=== PATIENT | male | born 1955 | race Caucasian/White ===

== ENCOUNTER 2017-07-04 17:22 | Emergency (ER) | payer BC, OTHER ==
[2017-07-04 17:26] VITALS: TEMP 98.6; BMI 24.7
--- NOTE | 2017-07-04 19:15 | PDOC ---
History of Present Illness - General Chief Complaint: Pain Stated Complaint: ABD PAIN Time Seen by Provider: 07/04/17 19:12 History Source: Patient - History of Present Illness Initial Comments: 07/04/17 21:34 62 year old male with generalized abdominal pain ( which has now resolved) and NVD BIB for evaluation. patient reports one episode of vomiting this morning and 2 episodes of diarrhea. patient also reports foul smelling urine with b/l lower back pain. patient reports that pain is ongoing since he fell on ice 1 month ago. denies fever/ chills, chest pain, diaphoresis, headache, abdominal pain at this time. past medical history of hypertension Past History - Past Medical History Allergies/Adverse Reactions: Allergies Allergy/AdvReac Type Severity Reaction Status Date / Time No Known Allergies Allergy Verified 07/04/17 17:23 Home Medications: Ambulatory Orders NK [No Known Home Medication] 07/04/17 COPD: No Diabetes: Yes - Suicide/Smoking/Psychosocial Hx Smoking History: Never smoked Have you smoked in the past 12 months: No Information on smoking cessation initiated: No Hx Alcohol Use: No Drug/Substance Use Hx: No Substance Use Type: None Review of Systems - Review of Systems Able to Perform ROS?: Yes Is the patient limited Mohawk proficient: No Constitutional: No: Symptoms Reported, See HPI, Chills, Diaphoresis, Fever, Loss of Appetite, Malaise, Night Sweats, Weakness, Weight Stable, Unintentional Wgt. Loss, Unexplained wgt Loss, Other HEENTM: No: Symptoms Reported, See HPI, Eye Pain, Blurred Vision, Tearing, Recent change in vision, Double Vision, Cataracts, Ear Pain, Ocular Prothesis, Ear Discharge, Nose Pain, Nose Congestion, Tinnitus, Nose Bleeding, Hearing Loss , Throat Pain, Throat Swelling, Mouth Pain, Dental Problems, Difficulty Swallowing, Mouth Swelling, Other Respiratory: No: Symptoms reported, See HPI, Cough, Orthopnea, Shortness of Breath, SOB with Exertion, SOB at Rest, Stridor, Wheezing, Productive cough, Hemoptysis, Other ABD/GI: Yes: Diarrhea, Nausea, Vomiting, Abdominal cramping. No: Symptoms Reported, See HPI, Abdominal Distended, Abd. Pain w/ defecation, Blood Streaked Bowels, Constipated, Difficulty Swallowing, Poor Appetite, Poor Fluid Intake, Rectal Bleeding, Indigestion, Tarry Stools, Other Musculoskeletal: No: Symptoms Reported, See HPI, Back Pain, Gout, Joint Pain, Joint Swelling, Muscle Pain, Muscle Weakness, Neck Pain, Joint Stiffness, Other *Physical Exam - Vital Signs Last Vital Signs Temp Pulse Resp BP Pulse Ox 98.6 F 86 18 131/89 100 07/04/17 17:24 07/04/17 17:24 07/04/17 17:24 07/04/17 17:24 07/04/17 17:24 - Physical Exam General Appearance: Yes: Appropriately Dressed Respiratory/Chest: positive: Lungs Clear, Normal Breath Sounds. negative: Chest Tender Cardiovascular: positive: Regular Rhythm, Regular Rate Gastrointestinal/Abdominal: positive: Soft, Increased Bowel Sounds Musculoskeletal: positive: Normal Inspection, Other (lower back tenderness) Extremity: positive: Normal Capillary Refill, Normal Inspection Integumentary: positive: Normal Color, Dry, Warm Neurologic: positive: Fully Oriented, Alert, Normal Mood/Affect Heart Score/ECG Review - ECG Intrepretation Rhythm: Regular Rhythm Comment:: 07/04/17 21:37 NSR: 70 BPM ED Treatment Course - LABORATORY CBC & Chemistry Diagram: 07/04/17 19:54 07/04/17 19:54 *DC/Admit/Observation/Transfer Diagnosis at time of Disposition: Acute gastroenteritis - Discharge Dispostion Disposition: HOME - Referrals - Patient Instructions Printed Discharge Instructions: Viral Gastroenteritis Additional Instructions: drink plenty of fluids Start A BRAT (bananas, rice, apples toast ) diet. follow up with your doctor as soon as possible. - Post Discharge Activity Forms/Work/School Notes: Back to Work
[2017-07-04] MEDS ORDERED: SODIUM CHLORIDE 1,000 ML IV STA (19:44)
[2017-07-04] MEDS ORDERED: ONDANSETRON 4 MG/2 ML VIAL IVPUSH ONE (19:45)
[2017-07-04] MEDS ORDERED: ONDANSETRON 4 MG/2 ML VIAL ONE (20:01)
--- NOTE | 2017-07-04 20:01 | PDOC ---
*Physical Exam - Vital Signs Last Vital Signs Temp Pulse Resp BP Pulse Ox 98.6 F 86 18 131/89 100 07/04/17 17:24 07/04/17 17:24 07/04/17 17:24 07/04/17 17:24 07/04/17 17:24 ED Treatment Course - LABORATORY CBC & Chemistry Diagram: 07/04/17 19:54 07/04/17 19:54 Medical Decision Making - Medical Decision Making 07/04/17 20:01 agree with care from ABRAHAM Dhillon *DC/Admit/Observation/Transfer Diagnosis at time of Disposition: Acute gastroenteritis - Discharge Dispostion Disposition: HOME - Referrals - Patient Instructions Printed Discharge Instructions: Viral Gastroenteritis Additional Instructions: drink plenty of fluids Start A BRAT (bananas, rice, apples toast ) diet. follow up with your doctor as soon as possible. - Post Discharge Activity Forms/Work/School Notes: Back to Work
[2017-07-04 20:02] LABS: BASO % 0.3 % (0-2.0); EOS % 0.2 % (0-4.5); HEMATOCRIT 43.5 % (35.4-49); HEMOGLOBIN 14.6 GM/dL (11.7-16.9); LYMPH % 10.6 % (8-40); MCH 30.7 pg (25.7-33.7); MCHC 33.5 g/dl (32.0-35.9); MEAN CELL VOLUME 91.6 fl (80-96); MEAN PLT VOLUME 8.8 fl (7.5-11.1); MONO % 6.5 % (3.8-10.2); NEUT % 82.4 % (42.8-82.8); PLATELET COUNT 161 K/MM3 (134-434); RBC 4.75 M/mm3 (4.00-5.60); RDW 14.4 % (11.9-15.9); WHITE BLOOD COUNT 6.4 K/mm3 (4.0-10.0)
[2017-07-04 20:04] LABS: URINE APPEARANCE CLEAR; URINE BILIRUBIN NEGATIVE (NEGATIVE); URINE BLOOD 1+ (NEGATIVE); URINE COLOR YELLOW; URINE GLUCOSE (UA) NEGATIVE (NEGATIVE); URINE KETONE NEGATIVE (NEGATIVE); URINE LEUK ESTERASE NEGATIVE (NEGATIVE); URINE NITRITE NEGATIVE (NEGATIVE); URINE PROTEIN NEGATIVE (NEGATIVE); URINE UROBILINOGEN NEGATIVE mg/dL (0.2-1.0)
[2017-07-04 20:09] LABS: URINE MUCUS MODERATE
[2017-07-04 20:34] LABS: ALBUMIN 3.7 g/dl (3.4-5.0); ANION GAP 5 (8-16); BLOOD UREA NITROGEN 25 mg/dL (7-18); CALCIUM 7.8 mg/dL (8.5-10.1); CHLORIDE 107 mmol/L (98-107); CO2 28 mmol/L (21-32); GLUCOSE,RANDOM 104 mg/dL (74-106); LIPASE 85 U/L (73-393); POTASSIUM 3.9 mmol/L (3.5-5.1); SGOT/AST 18 U/L (15-37); SGPT/ALT 34 U/L (12-78); SODIUM 140 mmol/L (136-145)
[2017-07-04 20:36] LABS: ALK PHOS 86 U/L (45-117); TOT PROT 6.8 g/dl (6.4-8.2)
[2017-07-04 21:50] VITALS: BP 140/82; PULSE 76
--- NOTE | 2017-07-05 11:41 | EKG ---
Test Reason : Blood Pressure : / mmHG Vent. Rate : 070 BPM Atrial Rate : 070 BPM P-R Int : 150 ms QRS Dur : 094 ms QT Int : 394 ms P-R-T Axes : 057 030 040 degrees QTc Int : 425 ms POOR DATA QUALITY, INTERPRETATION MAY BE ADVERSELY AFFECTED NORMAL SINUS RHYTHM NORMAL ECG NO PREVIOUS ECGS AVAILABLE Confirmed by BOBBY RODRIGUEZ MD ([id number]) on 07/05/2017 11:41:14 AM Referred By: Confirmed By:BOBBY RODRIGUEZ MD
== END 2017-07-04 21:50 | disposition home or self-care (01) ==
LOC: JER 17:22
PROC: 3E033GC Introduction of Other Therapeutic Substance into Peripheral Vein, Percutaneous Approach (ICD-10-PCS; principal; 2017-07-04)
PROC: 3E0337Z Introduction of Electrolytic and Water Balance Substance into Peripheral Vein, Percutaneous Approach (ICD-10-PCS; 2017-07-04)
DX: K52.9 Noninfective gastroenteritis and colitis, unspecified (principal)
CPT/HCPCS: 36415; 80053; 81003; 81015; 82550; 83690; 84484; 85025; 87086; 87491; 87591; 93005; 93010; 96361; 96374; 99283-25

== ENCOUNTER 2017-08-18 17:12 | Emergency (ER) | payer OTHER ==
--- NOTE | 2017-08-18 17:20 | PDOC ---
Rapid Medical Evaluation Chief Complaint: Pain, Acute Time Seen by Provider: 08/18/17 17:20 Medical Evaluation: Allergies Allergy/AdvReac Type Severity Reaction Status Date / Time No Known Allergies Allergy Verified 07/04/17 17:23 08/18/17 17:20 The patient presents with a chief complaint of: fever, dysuria, back pain I have performed a brief in-person evaluation of this patient. Pertinent physical exam findings: vss, appears healthy I have ordered the following: labs The patient will proceed to the ED for further evaluation. 08/18/17 17:22
[2017-08-18 17:23] VITALS: BP 140/70; PULSE 85; TEMP 99.7; BMI 56.9
[2017-08-18] MEDS ORDERED: SODIUM CHLORIDE 1,000 ML IV SCH (18:00)
[2017-08-18] MEDS ORDERED: ACETAMINOPHEN 325 MG TABLET (FP) PO ONE (18:20)
--- NOTE | 2017-08-18 18:22 | PDOC ---
History of Present Illness - General History Source: Patient, Old Records Exam Limitations: No Limitations - History of Present Illness Initial Comments: 08/18/17 18:27 The patient is a 62 year old male with past medical history hypertension, hyperlipidemia, and diabetes who presents to the emergency department with right flank pain for 3 days. He reports associated dysuria and fever. The patient took 2 advil last night with mild alleviation of pain. He denies nausea or vomiting. <Jimi Groves - Last Filed: 08/18/17 18:26> - General History Source: Patient Exam Limitations: No Limitations <Harlan Pearson - Last Filed: 08/18/17 21:27> - General Chief Complaint: Pain, Acute Stated Complaint: KIDNEY STONE, PAIN Time Seen by Provider: 08/18/17 17:20 Past History <Jimi Groves - Last Filed: 08/18/17 18:26> - Past Medical History COPD: No Diabetes: Yes HTN: Yes - Suicide/Smoking/Psychosocial Hx Smoking History: Never smoked Have you smoked in the past 12 months: No Information on smoking cessation initiated: No Hx Alcohol Use: No Drug/Substance Use Hx: No Substance Use Type: None <Harlan Pearson - Last Filed: 08/18/17 21:27> - Past Medical History Allergies/Adverse Reactions: Allergies Allergy/AdvReac Type Severity Reaction Status Date / Time No Known Allergies Allergy Verified 08/18/17 17:23 Home Medications: Ambulatory Orders Acetaminophen [Tylenol] 650 mg PO Q4H PRN #20 tablet 08/18/17 Tamsulosin HCl [Flomax] 0.4 mg PO DAILY #14 cap.er.24h 08/18/17 levoFLOXacin [Levaquin] 750 mg PO ONCE #4 tab 08/18/17 Review of Systems - Review of Systems Able to Perform ROS?: Yes Comments:: 08/18/17 18:27 GENERAL/CONSTITUTIONAL: No fever or chills. No weakness. HEAD, EYES, EARS, NOSE AND THROAT: No change in vision. No ear pain or discharge. No sore throat. CARDIOVASCULAR: No chest pain or shortness of breath. RESPIRATORY: No cough, wheezing, or hemoptysis. GASTROINTESTINAL: No nausea, vomiting, diarrhea or constipation. GENITOURINARY: (+) Dysuria. No frequency. MUSCULOSKELETAL: (+) Right flank pain. No neck pain. SKIN: No rash NEUROLOGIC: No headache, vertigo, loss of consciousness, or change in strength/ sensation. ENDOCRINE: No increased thirst. No abnormal weight change. HEMATOLOGIC/LYMPHATIC: No anemia, easy bleeding, or history of blood clots. ALLERGIC/IMMUNOLOGIC: No hives or skin allergy. <Jimi Groves - Last Filed: 08/18/17 18:26> *Physical Exam - Vital Signs Last Vital Signs Temp Pulse Resp BP Pulse Ox 99.7 F H 85 18 140/70 97 08/18/17 17:20 08/18/17 17:20 08/18/17 17:20 08/18/17 17:20 08/18/17 17:20 - Physical Exam Comments: 08/18/17 18:27 GENERAL: Awake, alert, and fully oriented, in no acute distress HEAD: No signs of trauma EYES: PERRLA, EOMI, sclera anicteric, conjunctiva clear ENT: Auricles normal inspection, hearing grossly normal, nares patent, oropharynx clear without exudates. Moist mucosa NECK: Normal ROM, supple, no lymphadenopathy, JVD, or masses LUNGS: Breath sounds equal, clear to auscultation bilaterally. No wheezes, and no crackles HEART: Regular rate and rhythm, normal S1 and S2, no murmurs, rubs or gallops ABDOMEN: (+) Mild tenderness on palpation, soft, normoactive bowel sounds. No guarding, no rebound. No masses EXTREMITIES: Normal range of motion, no edema. No clubbing or cyanosis. No cords, erythema, or tenderness NEUROLOGICAL: Cranial nerves II through XII grossly intact. Normal speech, normal gait SKIN: Warm, Dry, normal turgor, no rashes or lesions noted. <Jimi Groves - Last Filed: 08/18/17 18:26> - Vital Signs Last Vital Signs Temp Pulse Resp BP Pulse Ox 99.7 F H 85 18 140/70 97 08/18/17 17:20 08/18/17 17:20 08/18/17 17:20 08/18/17 17:20 08/18/17 17:20 <Harlan Pearson - Last Filed: 08/18/17 21:27> ED Treatment Course - LABORATORY CBC & Chemistry Diagram: 08/18/17 18:20 08/18/17 18:20 <Jimi Groves - Last Filed: 08/18/17 18:26> - LABORATORY CBC & Chemistry Diagram: 08/18/17 18:20 08/18/17 18:20 - RADIOLOGY Radiology Studies Ordered: Category Date Time Status SPIRAL- RENAL-STONE CT [CT] Stat CT Scan 08/18/17 17:58 Ordered <Harlan Pearson - Last Filed: 08/18/17 21:27> Medical Decision Making - Medical Decision Making 08/18/17 18:21 A portion of this note was documented by scribe services under my direction. I have reviewed the details of the note, within reason, and agree with the documentation with the following case summary and management plan written by me. Patient treated in the ED. Nursing notes are reviewed and incorporated into the medical decision-making. Vital signs reviewed. Peripheral IV access obtained by the nurse, laboratory studies are drawn and sent, reviewed and interpreted by myself. Vital Signs Temp Pulse Resp BP Pulse Ox 99.7 F H 85 18 140/70 97 08/18/17 17:20 08/18/17 17:20 08/18/17 17:20 08/18/17 17:20 08/18/17 17:20 62-year-old male with past medical history of hypertension, diabetes, hyperlipidemia presents with 3 days of right flank pain and dysuria. Endorses tactile fevers. Denies nausea or vomiting. We'll need to rule out pyelonephritis, cystitis, renal colic. Less likely is appendicitis. Obtain blood work and a CAT scan abdomen pelvis and urinalysis and reassess. 08/18/17 21:20 CAT scan demonstrates no hydroureter nephrosis. There is an equivocal subtle 3 x 2 mm mildly radiopaque right ureteral junction adjacent to the ureterovesical junction without associated obstruction. CBC, BMP 08/18/17 18:20 08/18/17 18:20 CMP Sodium 139 mmol/L (136-145) 08/18/17 18:20 Potassium 4.0 mmol/L (3.5-5.1) 08/18/17 18:20 Chloride 105 mmol/L (98-107) 08/18/17 18:20 Carbon Dioxide 28 mmol/L (21-32) 08/18/17 18:20 Anion Gap 6 (8-16) L 08/18/17 18:20 BUN 16 mg/dL (7-18) D 08/18/17 18:20 Creatinine 0.9 mg/dL (0.7-1.3) 08/18/17 18:20 Creat Clearance w eGFR > 60 (>60) 08/18/17 18:20 Random Glucose 164 mg/dL (74-106) H D 08/18/17 18:20 Calcium 8.3 mg/dL (8.5-10.1) L 08/18/17 18:20 Total Bilirubin 0.9 mg/dL (0.2-1.0) 08/18/17 18:20 AST 16 U/L (15-37) 08/18/17 18:20 ALT 28 U/L (12-78) 08/18/17 18:20 Alkaline Phosphatase 98 U/L (45-117) 08/18/17 18:20 Creatine Kinase 45 IU/L (39-308) 08/18/17 18:20 Troponin I < 0.02 ng/ml (0.00-0.05) 08/18/17 18:20 Total Protein 6.8 g/dl (6.4-8.2) 08/18/17 18:20 Albumin 3.4 g/dl (3.4-5.0) 08/18/17 18:20 Lipase 81 U/L (73-393) 08/18/17 18:20 Urine Test Results Urine Color Yellow 08/18/17 18:20 Urine Appearance Slcloudy 08/18/17 18:20 Urine pH 6.0 (5.0-8.0) 08/18/17 18:20 Ur Specific [place] 1.018 (1.001-1.035) 08/18/17 18:20 Urine Protein 2+ (NEGATIVE) H 08/18/17 18:20 Urine Glucose (UA) Negative (NEGATIVE) 08/18/17 18:20 Urine Ketones Negative (NEGATIVE) 08/18/17 18:20 Urine Blood 2+ (NEGATIVE) H 08/18/17 18:20 Urine Nitrite Negative (NEGATIVE) 08/18/17 18:20 Urine Bilirubin Negative (<2.0 mg/dL) 08/18/17 18:20 Ur Leukocyte Esterase 2+ (NEGATIVE) H 08/18/17 18:20 Ur Epithelial Cells Rare /HPF (FEW) 08/18/17 18:20 Urine Mucus Rare 08/18/17 18:20 The patient is feeling comfortable. The patient likely has pyelonephritis. Has a very mildly elevated white blood cell count otherwise tolerating by mouth. The patient is noted on the CAT scan to have a small any stone on the right side but no obstruction. The patient is comfortable. Given no obstruction, the patient can be discharged home. He is an appointment with his primary care physician in 2 days. Advised patient return to the ER if he has worsening symptoms. We'll give a prescription for levofloxacin 750 mg for for 5 days. I discussed the physical exam findings, ancillary test results and final diagnoses with the patient. I answered all of the patient's questions. The patient was satisfied with the care received and felt comfortable with the discharge plan and treatment plan. The patient will call their primary care physician within 24 hours to arrange follow-up and will return to the Emergency Department with any new, persistant or worsening symptoms. <Harlan Pearson - Last Filed: 08/18/17 21:27> *DC/Admit/Observation/Transfer - Attestations Scribe Attestion: 08/18/17 18:27 Documentation prepared by Jimi Groves, acting as infertility medical assistant for Harlan Pearson MD <Jimi Groves - Last Filed: 08/18/17 18:26> - Discharge Dispostion Admit: No <Harlan Pearson - Last Filed: 08/18/17 21:27> Diagnosis at time of Disposition: Pyelonephritis, Kidney stone - Discharge Dispostion Disposition: HOME Condition at time of disposition: Stable - Prescriptions Prescriptions: Acetaminophen [Tylenol] 650 mg PO Q4H PRN #20 tablet PRN Reason: Pain/Fever levoFLOXacin [Levaquin] 750 mg PO ONCE #4 tab Tamsulosin HCl [Flomax] 0.4 mg PO DAILY #14 cap.er.24h - Referrals Referrals: Zeferino Acuña MD [Primary Care Provider] - - Patient Instructions Printed Discharge Instructions: DI for Kidney Infection, DI for Kidney Stones Additional Instructions: You have a small 2x3 mm kidney stone on the right, but NO obstruction. You also have a kidney infection. Please take the levaquin (antibiotics) 750 mg daily starting tomorrow for four more days. Drink plenty of fluids and follow up with Dr. Acuña on Monday. - Post Discharge Activity
[2017-08-18 18:30] LABS: BASO % 0.5 % (0-2.0); EOS % 0.5 % (0-4.5); HEMATOCRIT 41.2 % (35.4-49); LYMPH % 7.9 % (8-40); MCH 31.2 pg (25.7-33.7); MEAN CELL VOLUME 91.8 fl (80-96); MEAN PLT VOLUME 9.1 fl (7.5-11.1); MONO % 8.1 % (3.8-10.2); PLATELET COUNT 175 K/MM3 (134-434); RBC 4.49 M/mm3 (4.00-5.60); RDW 14.6 % (11.9-15.9)
[2017-08-18 18:32] LABS: URINE APPEARANCE SLCLOUDY; URINE BILIRUBIN NEGATIVE (<2.0 mg/dL); URINE BLOOD 2+ (NEGATIVE); URINE COLOR YELLOW; URINE GLUCOSE (UA) NEGATIVE (NEGATIVE); URINE KETONE NEGATIVE (NEGATIVE); URINE NITRITE NEGATIVE (NEGATIVE); URINE UROBILINOGEN NEGATIVE mg/dL (0.2-1.0)
[2017-08-18 18:38] LABS: URINE LEUK ESTERASE 2+ (NEGATIVE); URINE PROTEIN 2+ (NEGATIVE)
[2017-08-18 18:41] LABS: EPI CELLS RARE /HPF (FEW); URINE MUCUS RARE; YEAST RARE
[2017-08-18 18:54] LABS: ALBUMIN 3.4 g/dl (3.4-5.0); ANION GAP 6 (8-16); BILIRUBIN,TOTAL 0.9 mg/dL (0.2-1.0); BLOOD UREA NITROGEN 16 mg/dL (7-18); CALCIUM 8.3 mg/dL (8.5-10.1); CHLORIDE 105 mmol/L (98-107); CO2 28 mmol/L (21-32); CREATININE 0.9 mg/dL (0.7-1.3); GLUCOSE,RANDOM 164 mg/dL (74-106); SGOT/AST 16 U/L (15-37); SGPT/ALT 28 U/L (12-78); SODIUM 139 mmol/L (136-145); TOT PROT 6.8 g/dl (6.4-8.2)
[2017-08-18 18:55] LABS: ALK PHOS 98 U/L (45-117)
[2017-08-18 19:16] LABS: LIPASE 81 U/L (73-393)
[2017-08-18] MEDS ORDERED: levoFLOXacin 750 MG TABLET PO ONE ×2 (19:37→21:10)
[2017-08-18] MEDS ORDERED: ACETAMINOPHEN 325 MG TABLET (FP) ONE (21:10)
[2017-08-18] MEDS ORDERED: TAMSULOSIN HCL 0.4 MG CAP.ER.24H (FP) PO ONE (21:20)
[2017-08-18] MEDS ORDERED: TAMSULOSIN HCL 0.4 MG CAP.ER.24H (FP) ONE (21:21)
== END 2017-08-18 21:42 | disposition home or self-care (01) ==
LOC: JER 17:12
PROC: 3E0337Z Introduction of Electrolytic and Water Balance Substance into Peripheral Vein, Percutaneous Approach (ICD-10-PCS; principal; 2017-08-18)
DX: N10 Acute pyelonephritis (principal); N20.0 Calculus of kidney
CPT/HCPCS: 36415; 74176; 80053; 81003; 81015; 82550; 83690; 84484; 85025; 87040; 87086; 87186; 96360; 96361; 99283-25; J7030

== ENCOUNTER 2019-01-20 09:03 | Emergency (ER) | payer OTHER ==
[2019-01-20 09:20] VITALS: BP 166/87; PULSE 73; TEMP 99.3; BMI 29.6
[2019-01-20] MEDS ORDERED: ONDANSETRON 4 MG/2 ML VIAL IVPUSH ONE (09:53)
[2019-01-20] MEDS ORDERED: SODIUM CHLORIDE 1,000 ML IV STA (09:53)
[2019-01-20] MEDS ORDERED: FAMOTIDINE 20 MG/50 ML IVPB 20 MG/50 ML MG IVPB ONE ×2 (10:15→10:27)
--- NOTE | 2019-01-20 10:21 | PDOC ---
Documentation entered by Uli Infante SCRIBE, acting as scribe for Jack Blair MD. Jack Blair MD: This documentation has been prepared by the Naresh prince Daniel, SCRIBE, under my direction and personally reviewed by me in its entirety. I confirm that the documentation accurately reflects all work, treatment, procedures, and medical decision making performed by me. History of Present Illness - General Chief Complaint: Pain Stated Complaint: ABD PAIN / R/O FOOD POISON Time Seen by Provider: 01/20/19 09:44 History Source: Patient, Spouse Exam Limitations: No Limitations - History of Present Illness Initial Comments: 01/20/19 09:55 The patient is a 63 year old male with a past medical history of HTN and non insulin dependent diabetes here today for evaluation of chest and abdominal pain. The patient reports that he ate shrimp and eggs last night for dinner and around 1 AM developed pain that radiates along his epigastric area, radiating up to his chest which he describes as burning. He also notes associated NBNB vomiting (3 episodes starting at 5 am, vomitus consisted of food), NB diarrhea ( 3 episodes), and chills this morning. He denies any previous similar episodes. His ate similar food at dinner last night, but has no symptoms. Denies sick contacts or recent travel. Patient denies headache, lightheadedness, dizziness, focal weakness/numbness. Denies fever, chills. Denies shortness of breath. Denies urinary sxs. Allergies: NKA PCP: German Acuña Past History - Past Medical History Allergies/Adverse Reactions: Allergies Allergy/AdvReac Type Severity Reaction Status Date / Time No Known Allergies Allergy Verified 01/20/19 09:09 Home Medications: Ambulatory Orders Acetaminophen [Tylenol] 650 mg PO Q4H PRN #20 tablet 08/18/17 Tamsulosin HCl [Flomax] 0.4 mg PO DAILY #14 cap.er.24h 08/18/17 levoFLOXacin [Levaquin] 750 mg PO ONCE #4 tab 08/18/17 COPD: No Diabetes: Yes HTN: Yes - Suicide/Smoking/Psychosocial Hx Smoking History: Never smoked Have you smoked in the past 12 months: No Information on smoking cessation initiated: No Hx Alcohol Use: No Drug/Substance Use Hx: No Substance Use Type: None Review of Systems - Review of Systems Able to Perform ROS?: Yes Comments:: 01/20/19 09:56 GENERAL/CONSTITUTIONAL: +chills. No fever. No weakness. HEAD, EYES, EARS, NOSE AND THROAT: No change in vision. No ear pain or discharge. No sore throat. GASTROINTESTINAL: +diarrhea. +vomiting. No constipation. GENITOURINARY: No dysuria, frequency, or change in urination. CARDIOVASCULAR: +chest pain. No shortness of breath. RESPIRATORY: No cough, wheezing, or hemoptysis. MUSCULOSKELETAL: No joint or muscle swelling or pain. No neck or back pain. SKIN: No rash NEUROLOGIC: No headache, vertigo, loss of consciousness, or change in strength/ sensation. ENDOCRINE: No increased thirst. No abnormal weight change. HEMATOLOGIC/LYMPHATIC: No anemia, easy bleeding, or history of blood clots. ALLERGIC/IMMUNOLOGIC: No hives or skin allergy. *Physical Exam - Vital Signs Last Vital Signs Temp Pulse Resp BP Pulse Ox 99.3 F 73 19 166/87 99 01/20/19 09:06 01/20/19 09:06 01/20/19 09:06 01/20/19 09:06 01/20/19 09:06 - Physical Exam Comments: 01/20/19 10:01 GENERAL: Awake, alert, and fully oriented, speaking softly but in no acute distress EYES: PERRLA, EOMI, sclera anicteric, conjunctiva clear ENT: Oropharynx clear without exudates. Moist mucosa NECK: Normal ROM, supple, no lymphadenopathy, JVD, or masses LUNGS: Breath sounds equal, clear to auscultation bilaterally. No wheezes, and no crackles HEART: +mid chest wall tenderness to palpation. Regular rate and rhythm, normal S1 and S2, no murmurs, rubs or gallops ABDOMEN: +epigastric tenderness to palpation. Soft, normoactive bowel sounds. No guarding, no rebound. No masses EXTREMITIES: Normal range of motion, no edema. No clubbing or cyanosis. No cords , erythema, or tenderness. WWP distally. NEUROLOGICAL: Normal speech, cranial nerves intact, 5/5 strength in all 4 extremities, normal sensation to light touch in all 4 extremities, normal gait SKIN: Warm, Dry, normal turgor, no rashes or lesions noted. Heart Score/ECG Review - History History: Slightly suspicious - Electrocardiogram EKG: Normal - Age Age: 45-65 - Risk Factors Based on the list above the patient has:: 1-2 risk factors - Troponin Troponin: </= normal limit - Score Heart Score - Total: 2 #1 01/20/19 10:15 EKG read and int by me: NSR, rate 71. Normal axis and intervals. No JOSIANE or TWI. ED Treatment Course - LABORATORY CBC & Chemistry Diagram: 01/20/19 10:23 01/20/19 10:23 - RADIOLOGY Radiology Studies Ordered: Category Date Time Status CHEST X-RAY PORTABLE* [RAD] Stat Radiology 01/20/19 09:53 Taken Medical Decision Making - Medical Decision Making 01/20/19 10:16 63yo M hx HTN, IDDM, presents to the ED with burning epigastric pain radiating up to the chest a/w nausea and vomiting after eating seafood and eggs for dinner. Vitals unremarkable Exam with epigatric and distal sternal ttp, pt otherwise well appearing Likely gastroenteritis, possibly related to food or viral. Given midline abdominal and chest pain, aortic dissection also a thought but pt has equal BP b /l (RUE 164/80, LUE 168/78), equal pulses, and is WWP distally. His pain does not radiate to the back. EKG non ischemic Plan for labs, CXR, symptomatic mgmt, IVF, reassess 01/20/19 13:50 Serial abd exam with lower abd ttp. CTAP ordered to r/o diverticulitis vs appy vs other acute pathology 01/20/19 15:50 Pt feeling a lot better Trop2 negative CTAP negative for acute pathology Rpt abd exam benign PO challenge at this point, if tolerates, will DC 01/20/19 16:12 Pt feeling significantly better Requests DC home He will f/u with Dr. Acuña in 1-2 I discussed the physical exam findings, ancillary test results and final diagnoses with the patient. I answered all of the patient's questions. The patient was satisfied with the care received and felt comfortable with the discharge plan and treatment plan. The patient will call their primary care physician within 24 hours to arrange follow-up and will return to the Emergency Department with any new, persistent or worsening symptoms. *DC/Admit/Observation/Transfer Diagnosis at time of Disposition: Abdominal pain, Chest pain, Vomiting - Discharge Dispostion Disposition: HOME Condition at time of disposition: Improved Decision to Admit order: No - Referrals Referrals: German Acuña [Primary Care Provider] - - Patient Instructions Printed Discharge Instructions: DI for Abdominal Pain-Adult Additional Instructions: Follow up with Dr. Acuña in 1-2 days Drink plenty of fluids and make sure you stay hydrated Return to the emergency department if you have any new, worsening, or concerning symptoms. - Post Discharge Activity - Attestations Physician Attestion: 01/20/19 16:13 I, Dr. Jack Blair MD, attest that this document has been prepared under my direction and personally reviewed by me in its entirety. I further attest, that it accurately reflects all work, treatment, procedures and medical decision -making performed by me.
[2019-01-20] MEDS ORDERED: ONDANSETRON 4 MG/2 ML VIAL ONE (10:24)
[2019-01-20 11:00] LABS: BASO % 0.3 % (0-2.0); EOS % 0.1 % (0-4.5); HEMATOCRIT 42.1 % (35.4-49); HEMOGLOBIN 14.5 GM/dL (11.7-16.9); LYMPH % 7.7 % (8-40); MCH 31.7 pg (25.7-33.7); MCHC 34.5 g/dl (32.0-35.9); MEAN CELL VOLUME 91.8 fl (80-96); MEAN PLT VOLUME 8.8 fl (7.5-11.1); MONO % 3.4 % (3.8-10.2); NEUT % 88.5 % (42.8-82.8); PLATELET COUNT 176 K/MM3 (134-434); RBC 4.59 M/mm3 (4.00-5.60); RDW 13.5 % (11.9-15.9); WHITE BLOOD COUNT 9.5 K/mm3 (4.0-10.0)
[2019-01-20 11:12] LABS: INR 1.01 (0.83-1.09); PROTHROMBIN TIME (PATIENT) 11.9 SEC (9.7-13.0)
[2019-01-20 11:29] LABS: BILIRUBIN,TOTAL 0.5 mg/dL (0.2-1); BLOOD UREA NITROGEN 20.3 mg/dL (7-18); CALCIUM 9.1 mg/dL (8.5-10.1); CREATININE 0.9 mg/dL (0.55-1.3); POTASSIUM 4.4 mmol/L (3.5-5.1); TOT PROT 7.1 g/dl (6.4-8.2)
[2019-01-20 13:34] LABS: PH,URINE 7.5 (5.0-8.0); URINE APPEARANCE CLEAR; URINE BILIRUBIN NEGATIVE (NEGATIVE); URINE COLOR YELLOW; URINE GLUCOSE (UA) 1+ (NEGATIVE); URINE KETONE NEGATIVE (NEGATIVE); URINE LEUK ESTERASE NEGATIVE (NEGATIVE); URINE NITRITE NEGATIVE (NEGATIVE); URINE PROTEIN NEGATIVE (NEGATIVE); URINE UROBILINOGEN 0.2 mg/dL (0.2-1.0)
--- NOTE | 2019-01-21 10:15 | EKG ---
Test Reason : Blood Pressure : / mmHG Vent. Rate : 071 BPM Atrial Rate : 071 BPM P-R Int : 168 ms QRS Dur : 092 ms QT Int : 402 ms P-R-T Axes : 054 036 050 degrees QTc Int : 436 ms NORMAL SINUS RHYTHM NORMAL ECG WHEN COMPARED WITH ECG OF 04-JUL-2017 20:11, NO SIGNIFICANT CHANGE WAS FOUND Confirmed by JUAN CARLOS BRAVO MD ([id number]) on 01/21/2019 10:15:20 AM Referred By: Confirmed By:JUAN CARLOS BRAVO MD
== END 2019-01-20 16:20 | disposition home or self-care (01) ==
LOC: JER 09:03
PROC: 3E033GC Introduction of Other Therapeutic Substance into Peripheral Vein, Percutaneous Approach (ICD-10-PCS; principal; 2019-01-20)
PROC: 3E033GC Introduction of Other Therapeutic Substance into Peripheral Vein, Percutaneous Approach (ICD-10-PCS; 2019-01-20)
PROC: 3E0337Z Introduction of Electrolytic and Water Balance Substance into Peripheral Vein, Percutaneous Approach (ICD-10-PCS; 2019-01-20)
DX: R07.9 Chest pain, unspecified (principal); R10.13 Epigastric pain; R11.10 Vomiting, unspecified; I10 Essential (primary) hypertension; E11.9 Type 2 diabetes mellitus without complications; Z79.84 Long term (current) use of oral hypoglycemic drugs
CPT/HCPCS: 36415; 71045-TC-FY; 74177-TC; 80053; 81003; 83690; 83735; 84484; 85025; 85610; 87086; 93005; 93010; 96361; 96365; 96375; 99282-25; J7030